=== PATIENT | male | born 1990 | race Caucasian/White ===

== ENCOUNTER 2019-10-08 23:14 | Emergency (ER) | payer BC | END 2019-10-08 23:39 | disposition home or self-care (01) | LOC: BURERS 23:14 | DX: S06.0X0A Concussion without loss of consciousness, initial encounter (principal); W22.8XXA Striking against or struck by other objects, initial encounter | CPT/HCPCS: 99283 ==

== ENCOUNTER 2021-09-20 11:19 | Emergency (ER) | payer OTHER ==
[2021-09-20] MEDS ORDERED: Ibuprofen 800 MG TAB ONE (11:57)
== END 2021-09-20 12:05 | disposition home or self-care (01) ==
LOC: BURERS 11:19
DX: S60.221A Contusion of right hand, initial encounter (principal); X58.XXXA Exposure to other specified factors, initial encounter